=== PATIENT | male | born 1960 | race Caucasian/White ===

== ENCOUNTER 2017-05-07 08:54 | Day surgery (SDC) | payer BC ==
[2017-05-06 08:49] VITALS: BMI 36.6
[~2017-05-07 08:54] MED LIST: LACTATED RINGERS 1,000 ML IV SCH; LIDOCAINE 1% 20 ML VIAL (10MG/ML) FOR IV START INTRADERMA PRN
[2017-05-07 09:31] VITALS: TEMP 97.2
[2017-05-07] MEDS ORDERED: PROPOFOL 10 MG/ML 20 ML VIAL IV ONE (09:49)
--- NOTE | 2017-05-07 10:08 | P.PCN ---
Date of Procedure: 05/07/17 Preoperative Diagnosis: Postoperative Diagnosis: Procedure(s) Performed: BRIEF HISTORY: Patient is a 56-year-old pleasant white male, scheduled for an elective colonoscopy as a part of evaluation of prior history of colon polyps. Last colonoscopy was done 5 years ago. PROCEDURE PERFORMED: Colonoscopy with snare polypectomy PREOPERATIVE DIAGNOSIS: History of colon polyps. IV sedation per Anesthesia. PROCEDURE: After informed consent was obtained, the patient, was brought into the endoscopy unit. IV sedation was administered by Anesthesia under continuous monitoring. Digital rectal examination was normal. Initially the Olympus CF- 160 flexible video colonoscope was then inserted in the rectum, gradually advanced into the cecum without any difficulty. Careful examination was performed as the scope was gradually being withdrawn. Ileocecal valve and the appendiceal orifice were visualized and appeared normal. Prep was excellent. Mucosa of the cecum, ascending colon, transverse colon, appeared normal. In the descending colon there was a 7-8 mm polyp that was removed by snare polypectomy. The rest of the descending colon, sigmoid colon, and rectum appeared normal. Retroflexion was performed in the rectum and no lesions were seen. The patient tolerated the procedure well. IMPRESSION: 7-8 mm descending colon polyp status post snare polypectomy Rest of the colon appeared normal RECOMMENDATIONS: Findings of this examination were discussed with the patient as well as his family. He was advised to follow with the biopsy results. If the biopsy shows a tubular adenoma he can have a repeat colonoscopy in 5 years. Implants: Indications for Procedure: Operative Findings: Description of Procedure:
[2017-05-07 10:16] VITALS: RESP 16
[2017-05-07 10:47] VITALS: BP 123/86; PULSE 59
== END 2017-05-07 10:51 | disposition home or self-care (01) ==
LOC: ORWHC2ENDO 08:54
PROVIDERS: ATTEND Internal Medicine Gastroenterology
DX: Z12.11 Encounter for screening for malignant neoplasm of colon (principal); D12.4 Benign neoplasm of descending colon; Z86.010 Personal history of colon polyps; E78.5 Hyperlipidemia, unspecified; K21.9 Gastro-esophageal reflux disease without esophagitis; Z79.899 Other long term (current) drug therapy; Z79.82 Long term (current) use of aspirin
CPT/HCPCS: 88305; 45385; J2704

== ENCOUNTER → 2022-05-17 | Outpatient (CLI) | payer BC ==
--- NOTE | 2022-05-17 10:39 | CT ---
EXAMINATION TYPE: CT abdomen pelvis wo/w con DATE OF EXAM: 05/17/2022 COMPARISON: NONE HISTORY: 61-year-old male Gross hematuria TECHNIQUE: Contiguous axial scanning of the abdomen and pelvis following before and after administrat ion of 100 ml Isovue 300 IV contrast. Delayed images through the kidneys and coronal/sagittal recons tructions performed. CT DLP: 2661 mGycm Automated exposure control for dose reduction was used. FINDINGS: Heart normal size without pericardial effusion. Lung bases clear without pleural effusion. Tiny hiatal hernia. No focal liver lesion or biliary ductal dilatation. Portal venous system is patent. Gallbladder, adrenal glands, spleen, and pancreas within normal limits. Presently 3 nonobstructive right renal calculi, largest measuring 8 mm. A few scattered renal cortical cysts on both sides, measuring up to 1.3 cm on the left and 1.9 cm on the right. No suspicious renal lesion. Symmetric uptake and excretion of contrast from the kidneys. No hydroneph rosis. No dilated small bowel, free fluid, or free air. No mesenteric or retroperitoneal lymphadenopathy. Th ere is mild to moderate stool burden. Oral contrast progressed to the proximal transverse colon. Mild sigmoid diverticulosis without pericolonic inflammatory change. Bladder is distended. Prostate gland measures 4.5 cm wide. Patulous bilateral inguinal canals. No abn ormal fluid collection in the pelvis or pelvic lymphadenopathy. A 1.2 cm peripherally calcified nodule within the subcutaneous adipose layer of the right gluteal reg ion, likely relating to prior injury or injection. Bones: Mild to moderate degenerative change of the hips. Moderate to advanced degenerative disc disea se levels with grade 1 spondylolisthesis L4-L5 and L5-S1. IMPRESSION: 1. A FEW NONOBSTRUCTIVE RIGHT RENAL CALCULI MEASURING UP TO 8 MM. ADDITIONAL FEW BENIGN RENAL CORTICA L CYSTS MEASURING UP TO 1.9 CM. NO SUSPICIOUS RENAL MASS OR HYDRONEPHROSIS. 2. SIGMOID DIVERTICULOSIS WITHOUT ACUTE DIVERTICULITIS. 3. MILD PROSTATOMEGALY AT 4.5 CM . TINY HIATAL HERNIA.
== END | disposition home or self-care (01) ==
LOC: RADCTMAIN 07:29
PROVIDERS: ATTEND Family Medicine
DX: N20.0 Calculus of kidney (principal); N28.1 Cyst of kidney, acquired; N40.0 Benign prostatic hyperplasia without lower urinary tract symptoms; K57.30 Diverticulosis of large intestine without perforation or abscess without bleeding; K44.9 Diaphragmatic hernia without obstruction or gangrene
CPT/HCPCS: 82565; 84520; 74178; 36415; Q9967 ×2

== ENCOUNTER → 2023-05-30 | Outpatient (CLI) | payer OTHER ==
--- NOTE | 2023-05-30 08:48 | US ---
EXAMINATION TYPE: US kidneys/renal and bladder DATE OF EXAM: 05/30/2023 COMPARISON: CT 2021, US 2013 CLINICAL INDICATION: Male, 62 years old with history of N13.30; History of kidney stones EXAM MEASUREMENTS: Right Kidney: 12.6 x 6.0 x 6.5 cm Left Kidney: 12.5 x 5.2 x 5.9 cm Right Kidney: cystic area inferior pole 2.2 x 1.9 x 2.5cm, 0.5cm echogenic focus inferior pole Left Kidney: 1.5cm hypoechoic to anechoic round area superior pole Bladder: wnl Bilateral Jets seen: no Normal Post Void Residual: Kidney sizes are symmetric and within normal limits. Cortical medullary differentiation maintained. T here is 2.2 cm thin-walled cyst with thin septa in the lower pole right kidney likely corresponding t o CT axial image 44 lesion. There is 1.5 cm simple appearing thin-walled cyst upper pole level left k idney. No hydronephrosis seen bilaterally. Small right-sided renal calculi on CT less well seen on ul trasound. Urinary bladder appears within normal limits. IMPRESSION: As above.
== END | disposition home or self-care (01) ==
LOC: RADUSWWP 07:29
PROVIDERS: ATTEND Family Medicine
DX: N13.2 Hydronephrosis with renal and ureteral calculous obstruction (principal); N28.1 Cyst of kidney, acquired
CPT/HCPCS: 76770